=== PATIENT | female | born 1940 | race Hispanic/Latino ===

== ENCOUNTER → 2017-06-20 | Day surgery (SDC) | payer MEDICARE, MEDICAID ==
[~2017-06-20] VITALS: Ht 152.4 cm; Wt 46.0 kg
[~2017-06-20] MED LIST: 0.9% Sodium Chloride 1,000 ML IV SCH; ACET325T51 PO; ALEN70SO3 PO; CARB1TAB37 PO; CHOL500062 PO; CITA20TA11 PO; CYAN10008 PO; GABA-504 PO; INSU100I13 SUBQ; LISI2.5T PO; METF500T4 PO; METO25TA6 PO; OXYC-407 PO; RANI150C4 PO; Sodium Chloride LOK Flush 10 mL Syringe IV PRN; TERB15CR18 TP; fentaNYL-PF 50 mCg/mL 2 mL Inj IVPUSH PRN
[2017-06-20 12:30] VITALS: BP 190/99; PULSE 82; RESP 14; O2SAT 99
== END | disposition home or self-care (01) ==
LOC: END 00:39
PROVIDERS: ATTEND Internal Medicine Gastroenterology
DX: D64.9 Anemia, unspecified (principal); Z53.8 Procedure and treatment not carried out for other reasons
CPT/HCPCS: G0463; J7030